=== PATIENT | female | born 1995 | race Caucasian/White ===

== ENCOUNTER 2025-09-09 21:36 | Emergency (ER) | payer BC, SELFPAY ==
[2025-09-09 21:38] VITALS: BP 146/101
[2025-09-09 22:47] VITALS: BMI 46.2
--- NOTE | 2025-09-09 22:59 | ED.GENMED ---
History of Present Illness
<Sisi Dowell MD, Resident - Last Filed: 09/10/25 00:52>
General
Chief Complaint: Headache
Source: patient
Exam Limitations: none
Time Seen by Provider: 09/09/25 22:36
Nursing documentation reviewed up to this point in time: agreed with
History of Present Illness
History of Present Illness:
29yo F with a hx of bipolar, MDD, ADHD, anxiety, BPD who presents with headache and nausea.
Pt states that 2 days ago she began experiencing R-sided headache in the occipital/temporal region of head. Quality of pain has been throbbing. The headache has been constant since then with worsening today. This evening, she also began experiencing
tingling in bilateral feet. Pt denies any hx of migraines. Took tylenol & advil this am for pain. Endorses photophobia, some pain with EOM. Endorses nausea, but no episodes of emesis. Had an episode of diarrhea. Endorses blurry vision and worsening
pain when she tries to focus her eyes. Has been in a rehab program & is 79 days without substance use. About 1.5mo ago, her meds were changed from aripiprazole to bupropion, prazosin, & cariprazine. Also takes nightly hydroxyzine. Denies any recent
colds or illnesses. Denies fever/chills.
Pt also notes that she had what seemed to be an infection in her L upper gum in area of missing molar. There was an inflamed, red area that was tender to the touch. Did not get medical attention, it self-resolved. Did not note any purulence.
Phy Exam
<Sisi Dowell MD, Resident - Last Filed: 09/10/25 00:52>
Physical Exam
Physical Exam:
General: mild distress, in room with lights out, slightly groggy
Neuro: EOM intact, PPERL, facial movement appropriate
CV: regular rate & rhythm
Pulm: non labored respirations
Abd: non-distended
Skin: normal color
Psych: somnolent, appropriate affect
MSK: neck full ROM
Course
<Sisi Dowell MD, Resident - Last Filed: 09/10/25 00:52>
Orders/Labs/Results
Orders:
Orders
09/09/25 23:23
CT Head W/o Iv Contrast Urgent
Comment:
Reason For Exam: new headache
09/09/25 23:25
Ketorolac [Toradol] 15 mg IV NOW STA
Vital Signs
Initial and Last Documented VS:
Initial Vital Signs
Temp Pulse Resp BP Pulse Ox
99.2 F 114 20 146/101 96
09/09/25 21:38 09/09/25 21:38 09/09/25 21:38 09/09/25 21:38 09/09/25 21:38
Last Documented Vital Signs
Temp Pulse Resp BP Pulse Ox
99.2 F 96 20 122/71 99
09/09/25 21:38 09/10/25 01:18 09/10/25 01:18 09/10/25 01:18 09/10/25 01:18
<Hugo Gorman, DO - Last Filed: 09/10/25 01:28>
Orders/Labs/Results
Orders:
Orders
09/09/25 23:23
CT Head W/o Iv Contrast Urgent
Comment:
Reason For Exam: new headache
09/09/25 23:25
Ketorolac [Toradol] 15 mg IV NOW STA
Vital Signs
Initial and Last Documented VS:
Initial Vital Signs
Temp Pulse Resp BP Pulse Ox
99.2 F 114 20 146/101 96
09/09/25 21:38 09/09/25 21:38 09/09/25 21:38 09/09/25 21:38 09/09/25 21:38
Last Documented Vital Signs
Temp Pulse Resp BP Pulse Ox
99.2 F 96 20 122/71 99
09/09/25 21:38 09/10/25 01:18 09/10/25 01:18 09/10/25 01:18 09/10/25 01:18
<Sisi Dowell MD, Resident - Last Filed: 09/10/25 00:52>
MDM/Problems Addressed
Differential Diagnosis Includes:
Ddx:
Migraine
Pseudotumor cerebri
Cerebral venous sinus thrombosis
Aseptic meningitis
Rxn to psych med changes
MDM/Problems Addressed:
- CT head wo contrast
- IV toradol 15mg
- Can consider decadron pending sx
- Will hold on promethazine & benadryl given [employer] depression & pt ubering home
<Sisi Dowell MD, Resident - Last Filed: 09/10/25 00:52>
*Pulse Oximetry
SaO2: 96
Oxygen Mode of Delivery: Room air
Patient hypoxic: no
*Critical Care Note
Total Time (30-74mins, 75-104mins- exclusive of procedures): Not Applicable
<Hugo Gorman, DO - Last Filed: 09/10/25 01:28>
*Radiology
Radiology exam reviewed: radiology read reviewed (ct head nad)
<Sisi Dowell MD, Resident - Last Filed: 09/10/25 00:52>
Update Note
Update Note:
12:42am
Checked on patient - headache & vision blurriness improved s/p toradol
ED Attending Note
<Sisi Dowell MD, Resident - Last Filed: 09/10/25 00:52>
-
Portions of this chart may have been created with voice recognition software.� Occasional wrong word or��sound alike� substitutions may have occurred due to the inherent limitations of voice recognition software.
<Hugo Gorman, DO - Last Filed: 09/10/25 01:28>
ED Attending Note
Patient seen and examined by attending physician: Yes
I performed a history and physical exam of patient and discussed management with resident, I reviewed resident's note and agree with documented findings and plan of care.: Yes
ED Attending Note:
I have reviewed and agree with history treatment plan by Sisi Dowell MD. My exam revealed
Physical Exam
General: no apparent distress, not acutely ill
Neck: supple. no meningeal signs. normal posterior pharynx
Heart: s1/s2 regular rate and rhythm, no murmur. equal radial
pulses.
HEENT: Pupils equal round reactive to light, EOMI
Lungs: no acute respiratory distress. clear bilaterally
Abdomen: normal bowel sounds. not tender. no CVAT
Neuro: alert and oriented. no focal neurological deficits cranial nerves II through XII intact
Skin: no rash
Psychiatric: well kept. interactive and cooperative
Extremities: no edema. no calf tenderness. negative homans. good distal pulses
History suspicious for migraine. Will evaluate with head CT, ruling out intracranial tumor, pseudotumor cerebri. CT head no acute findings. Patient feels better after IV Toradol.
Discharge Plan
Departure
Patient Disposition: Home (Routine Discharge)
Date of Disposition: 09/10/25
Time of Disposition: 00:46
Patient with high blood pressure during this ER visit?: No
Condition: Fair
Covid-19: Not Applicable
Discharge Problem:
Migraine
Instructions: Migraines (DC)
Prescriptions:
New
rizatriptan 10 mg tablet,disintegrating
10 mg PO ONCE PRN (Reason: migraine) Qty: 20 0RF
Referrals:
Isaiah Diaz MD [Active, Neurology]
Referral Note: migraine mgmt
NONE,* [Family Provider, Internal Medicine]
Activity Restrictions/Additional Instructions:
You were seen in the ED for headache. It is likely a migraine. Your symptoms improved with toradol (pain medication).
We are discharging you with a prescription for an anti-migraine medication called rizatriptan. If you feel a migraine starting to come on, take 10mg of rizatriptan. It is most effective at the beginning of a migraine onset. Do not take more than
30mg in 24hours, and limit use to fewer than 10 days per month.
If your headache worsens or if you have worsening visual changes (vision loss, blurriness) return to the ED. We have also included referral information for a neurologist who can help with managing your migraine symptoms long-term.
Interventions
Interventions:
*Risk Screen - Suicide Last Done: 09/09/25 21:38
*General Assessment Last Done: 09/09/25 21:38
*Neglect/Abuse Screening Last Done: 09/09/25 21:38
*ED- Fall Risk Assessment Last Done: 09/09/25 21:38
*ED COVID-19 Vaccine History Last Done: 09/09/25 21:47
*ED Influenza Vaccine History Last Done: 09/09/25 21:38
*Nursing Disposition Last Done: 09/10/25 01:24
ED- Neurological Assessment Last Done: 09/09/25 22:48
Discharge Date and Time
Discharge Date/Time: 09/10/25 01:24
Print Language: [place]
[2025-09-09] MEDS: TORADOL 15 MG IV (23:33)
[2025-09-10 01:15] VITALS: BP 122/71
[2025-09-10 01:18] VITALS: BP 122/71
== END 2025-09-10 01:24 | disposition home or self-care (01) ==
LOC: EMR 21:36
PROVIDERS: EMERGENCY PHYSICIAN Emergency Medicine
DX: G43.909 Migraine, unspecified, not intractable, without status migrainosus (principal)
CPT/HCPCS: 96374; 99284; 70450